=== PATIENT | female | born 1940 | race Caucasian/White ===

== ENCOUNTER 2020-06-01 19:09 | Emergency (ER) | payer MEDICARE, OTHER ==
[~2020-06-01] VITALS: Ht 154.9 cm; Wt 74.8 kg
[2020-06-01 20:14] LABS: BASOPHILS ABSOLUTE AUTO 0.02 K/mm3 (0.00-0.23); BASOPHILS PERCENT AUTO 0 % (0-2); EOSINOPHILS ABSOLUTE AUTO 0.14 K/mm3 (0.00-0.68); EOSINOPHILS PERCENT AUTO 2 % (0-6); Hematocrit 40.1 % (33.0-51.0); Hemoglobin 13.8 g/dL (11.5-16.0); IMMATURE GRAN ABSOLUTE AUTO 0.03 K/mm3 (0.00-0.10); IMMATURE GRAN PERCENT AUTO 1 % (0-1); LYMPHOCYTES ABSOLUTE AUTO 1.51 K/mm3 (0.84-5.20); LYMPHOCYTES PERCENT AUTO 24 % (21-46); MONOCYTES ABSOLUTE AUTO 0.61 K/mm3 (0.16-1.47); MONOCYTES PERCENT AUTO 10 % (4-13); Mean Corpuscular HGB 29.4 pg (26.0-34.0); Mean Corpuscular HGB Conc 34.4 g/dL (31.5-36.5); Mean Corpuscular Volume 85 fL (80-100); NEUTROPHILS ABSOLUTE AUTO 3.97 K/mm3 (1.96-9.15); NEUTROPHILS PERCENT AUTO 63 % (41-73); Platelet Count 230 K/mm3 (150-400); RDW Coefficient Variation 13.2 % (11.7-14.2); RDW Standard Deviation 40.9 fL (35.1-46.3); White Blood Cell Count 6.28 K/mm3 (4.00-11.30)
[2020-06-01 20:39] LABS: Alanine Aminotransfer (ALT/SGP 18 U/L (12-78); Albumin, Blood 4.1 g/dL (3.4-5.0); Alk Phos 94 U/L (50-136); Anion Gap 8 mmol/L (6-16); Aspartate Aminotrans (AST/SGOT 20 U/L (12-37); Bilirubin, Total 0.5 mg/dL (0.1-1.0); Blood Urea Nitrogen 27 mg/dL (8-24); Bun/Creatinine Ratio 22.7 (12.0-20.0); CO2, Blood 31 mmol/L (21-32); Calcium, Blood 9.9 mg/dL (8.5-10.1); Chloride, Blood 99 mmol/L (98-108); Creatinine, Blood 1.19 mg/dL (0.40-1.00); Globulin, Blood 4.1 g/dL (2.2-4.0); Glomerular Filtration Rate 46 (60-); Glucose, Blood 94 mg/dL (70-99); Potassium, Blood 3.1 mmol/L (3.5-5.5); Sodium, Blood 138 mmol/L (136-145); Total Protein, Blood 8.2 g/dL (6.4-8.2); Troponin I <0.015 ng/mL (0.000-0.040)
[2020-06-01] MEDS ORDERED: TOPROL XL25 MG PO (20:54)
[2020-06-01] MEDS ORDERED: Hygroton50 MG (20:54)
[2020-06-01] MEDS ORDERED: ASPI325 PO (20:55)
[2020-06-01] MEDS ORDERED: LOSA50 PO (20:55)
== END 2020-06-01 23:47 | disposition home or self-care (01) ==
LOC: ER 19:09
PROVIDERS: Emergency Medicine
DX: R07.9 Chest pain, unspecified (principal); I10 Essential (primary) hypertension; E78.5 Hyperlipidemia, unspecified; Z88.0 Allergy status to penicillin; Z88.2 Allergy status to sulfonamides; Z79.899 Other long term (current) drug therapy; Z79.82 Long term (current) use of aspirin
CPT/HCPCS: 36415; 71046; 80053; 83880; 84484; 85025; 93005; 93010; 99285-25

== ENCOUNTER 2021-09-12 12:39 | Inpatient (IN) | payer MEDICARE, OTHER ==
[~2021-09-12] VITALS: Ht 152.4 cm; Wt 76.5 kg
[~2021-09-12 12:39] MED LIST: ASPI325 PO; Hygroton50 MG; LOSA50 PO; TOPROL XL25 MG PO
[2021-09-12 14:31] LABS: Alanine Aminotransfer (ALT/SGP 27 U/L (12-78); Albumin, Blood 3.1 g/dL (3.4-5.0); Albumin/Globulin Ratio 0.8 (0.8-1.8); Alk Phos 75 U/L (50-136); Anion Gap 12 mmol/L (6-16); Aspartate Aminotrans (AST/SGOT 31 U/L (12-37); Bilirubin, Total 0.9 mg/dL (0.1-1.0); Blood Urea Nitrogen 16 mg/dL (8-24); Bun/Creatinine Ratio 19.8 (12.0-20.0); CO2, Blood 30 mmol/L (21-32); Calcium, Blood 8.3 mg/dL (8.5-10.1); Chloride, Blood 71 mmol/L (98-108); Creatinine, Blood 0.81 mg/dL (0.40-1.00); Globulin, Blood 3.9 g/dL (2.2-4.0); Glomerular Filtration Rate >60 (60-); Glucose, Blood 151 mg/dL (70-99); Potassium, Blood 2.5 mmol/L (3.5-5.5); Sodium, Blood 113 mmol/L (136-145)
[2021-09-12 14:34] LABS: BASOPHILS ABSOLUTE AUTO 0.01 K/mm3 (0.00-0.23); BASOPHILS PERCENT AUTO 0 % (0-2); EOSINOPHILS PERCENT AUTO 0 % (0-6); Hematocrit 32.2 % (33.0-51.0); IMMATURE GRAN ABSOLUTE AUTO 0.08 K/mm3 (0.00-0.10); IMMATURE GRAN PERCENT AUTO 1 % (0-1); LYMPHOCYTES ABSOLUTE AUTO 0.47 K/mm3 (0.84-5.20); LYMPHOCYTES PERCENT AUTO 6 % (21-46); MONOCYTES ABSOLUTE AUTO 0.67 K/mm3 (0.16-1.47); MONOCYTES PERCENT AUTO 8 % (4-13); Mean Corpuscular HGB 28.6 pg (26.0-34.0); Mean Corpuscular HGB Conc 37.3 g/dL (31.5-36.5); Mean Corpuscular Volume 77 fL (80-100); NEUTROPHILS ABSOLUTE AUTO 6.73 K/mm3 (1.96-9.15); NEUTROPHILS PERCENT AUTO 85 % (41-73); Platelet Count 208 K/mm3 (150-400); RDW Coefficient Variation 12.3 % (11.7-14.2); Red Blood Cell Count 4.19 M/mm3 (3.80-5.20); White Blood Cell Count 7.96 K/mm3 (4.00-11.30)
[2021-09-12] MEDS ORDERED: TELM20 (15:36)
[2021-09-12 16:39] LABS: Anion Gap 10 mmol/L (6-16); Blood Urea Nitrogen 15 mg/dL (8-24); Bun/Creatinine Ratio 18.1 (12.0-20.0); CO2, Blood 31 mmol/L (21-32); Calcium, Blood 8.1 mg/dL (8.5-10.1); Chloride, Blood 72 mmol/L (98-108); Creatinine, Blood 0.83 mg/dL (0.40-1.00); Glomerular Filtration Rate >60 (60-); Glucose, Blood 154 mg/dL (70-99); Potassium, Blood 2.5 mmol/L (3.5-5.5); Sodium, Blood 113 mmol/L (136-145)
[2021-09-12 18:03] LABS: Source, Urine Voided
[2021-09-12 18:16] LABS: Bilirubin, Urine Neg (Neg); Blood, Urine 5+ (Neg); Glucose Qualitative, Urine Neg (Neg); Ketones, Urine Neg (Neg); Leukocyte Esterase, Urine 1+ (Neg); Nitrite, Urine Pos (Neg); Protein, Urine 3+ (Neg); Urobilinogen, Urine 2+ (Normal)
[2021-09-12 18:21] LABS: Appearance, Urine Cloudy (Clear); Color, Urine Pale Yellow (P-Yellow)
[2021-09-12 18:22] LABS: Bacteria Many /hpf; Red Blood Cells, Urine 25-50 /hpf (0-2); Squamous Epithelial Cells Few /hpf (Few)
--- NOTE | 2021-09-12 18:49 | NUR ---
ARRIVAL TO PCU/SHIFT SUMMARY PATIENT ARRIVED FROM ED VIA GURNEY AND TRANSFERED TO PCU BED VIA SLIDER SHEET. PATIENT IS ALERT AND ORIENTATED X4. PERRLA. NEURO INTACT. VSS. SPO2 >90% ON RA. PATIENT REPORTS NO SHORTNESS OF BREATH. PATIENT LUNG SOUNDS SOUND WHEEZEY THROUGHOUT. PATIENT IS TELE SR AT 73. STRONG RADIAL AND PEDIS PULSES. PATIENT REPORTS NO CHEST PAIN. ABD IS SOFT NONTENDER. PATIENT IS IN NO DISTRESS. PATIENT REPORTS NO CHEST PAIN. THE FIRST PART OF PATIENT ASSESSMENT IS COMPLETE, BUT THE HISTORY AND ADMIN ASSESSMENT STILL NEEDS TO BE COMPLETE AND WILL INFORM THE UPCOMING RN. PATIENT ORIENTATED TO ROOM AND CALL LIGHT. CALL LIGHT WITHIN REACH AND BED IN LOWEST POSITON. WILL CNTINUE TO MONITOR AND PROVIDE CARE UNTIL HAND OFF WITH NEXT SHIFT.
[2021-09-12 19:05] LABS: Influenza B, PCR NEGATIVE (NEGATIVE); Resp Syncytial Virus, PCR NEGATIVE (NEGATIVE); SARS-Cov-2 (COVID-19) PCR, MMC NEGATIVE (NEGATIVE)
[2021-09-12 19:08] LABS: Influenza A, PCR POSITIVE (NEGATIVE)
[2021-09-12 21:14] LABS: Anion Gap 9 mmol/L (6-16); Blood Urea Nitrogen 14 mg/dL (8-24); Bun/Creatinine Ratio 18.1 (12.0-20.0); CO2, Blood 30 mmol/L (21-32); Calcium, Blood 7.9 mg/dL (8.5-10.1); Chloride, Blood 76 mmol/L (98-108); Creatinine, Blood 0.77 mg/dL (0.40-1.00); Glomerular Filtration Rate >60 (60-); Glucose, Blood 161 mg/dL (70-99); Sodium, Blood 115 mmol/L (136-145)
[2021-09-13 00:24] LABS: Anion Gap 9 mmol/L (6-16); Blood Urea Nitrogen 15 mg/dL (8-24); Bun/Creatinine Ratio 17.8 (12.0-20.0); CO2, Blood 30 mmol/L (21-32); Calcium, Blood 7.8 mg/dL (8.5-10.1); Chloride, Blood 77 mmol/L (98-108); Creatinine, Blood 0.84 mg/dL (0.40-1.00); Glomerular Filtration Rate >60 (60-); Glucose, Blood 144 mg/dL (70-99); Potassium, Blood 3.2 mmol/L (3.5-5.5); Sodium, Blood 116 mmol/L (136-145)
[2021-09-13 03:55] LABS: BASOPHILS PERCENT AUTO 0 % (0-2); EOSINOPHILS PERCENT AUTO 0 % (0-6); Hemoglobin 10.2 g/dL (11.5-16.0); IMMATURE GRAN ABSOLUTE AUTO 0.03 K/mm3 (0.00-0.10); IMMATURE GRAN PERCENT AUTO 0 % (0-1); LYMPHOCYTES ABSOLUTE AUTO 0.51 K/mm3 (0.84-5.20); LYMPHOCYTES PERCENT AUTO 7 % (21-46); MONOCYTES PERCENT AUTO 10 % (4-13); Mean Corpuscular HGB 28.7 pg (26.0-34.0); Mean Corpuscular HGB Conc 36.4 g/dL (31.5-36.5); Mean Corpuscular Volume 79 fL (80-100); NEUTROPHILS ABSOLUTE AUTO 5.65 K/mm3 (1.96-9.15); NEUTROPHILS PERCENT AUTO 82 % (41-73); Platelet Count 185 K/mm3 (150-400); RDW Coefficient Variation 12.4 % (11.7-14.2); RDW Standard Deviation 35.7 fL (35.1-46.3); Red Blood Cell Count 3.55 M/mm3 (3.80-5.20); White Blood Cell Count 6.89 K/mm3 (4.00-11.30)
[2021-09-13 04:17] LABS: Anion Gap 9 mmol/L (6-16); Blood Urea Nitrogen 15 mg/dL (8-24); Bun/Creatinine Ratio 17.2 (12.0-20.0); CO2, Blood 29 mmol/L (21-32); Calcium, Blood 7.7 mg/dL (8.5-10.1); Chloride, Blood 79 mmol/L (98-108); Creatinine, Blood 0.87 mg/dL (0.40-1.00); Glomerular Filtration Rate >60 (60-); Glucose, Blood 122 mg/dL (70-99); Potassium, Blood 2.9 mmol/L (3.5-5.5); Sodium, Blood 117 mmol/L (136-145)
--- NOTE | 2021-09-13 05:56 | NUR ---
SHIFT SUMMARY PATIENT FOUND TO BE A&OX4 WITH A FLAT AFFECT AND GENERALIZED WEAKNESS. VSS. ON RA. FREQUENT PRODUCTIVE COUGH WITH THICK GREEN SPUTUM CONTINUES. COUGH MEDS ADDED TO MED LIST AND GIVEN. SR ON THE MONITOR WITH FREQUENT PVC'S AND PAC'S. RN NOTICED EARLY THIS AM UPON GETTING UP TO COMMODE THAT PATIENT HAD INT. SHORT RUNS OF AFIB. ASYMPTOMATIC THROUGHOUT. WILL KEEP AN EYE ON THIS NO NOTABLE HISTORY OF AFIB. NAUSEA MEDS GIVEN PRN X2 WITH GOOD RELIEF. DID NOT WANT TO ATTEMPT ANY OTHER ORAL INTAKE BESIDES WATER. TOLERATING THIS AND WILL ENCOURAGE MORE ORAL INTAKE TOLERATED. ONE EPISODE OF DIARHEA AT START OF SHIFT BUT NONE SINCE THEN. IMMODIUM ADDED TO PRN MED LIST AND GIVEN. VOIDING WELL PER BSC WITH SBA. CALLING APPROPRIATELY FOR ASSISTANCE AND FALL PRECAUTIONS IN PLACE. IV FLUIDS AND POTASSIUM RUN PER ORDER. K STILL LOW WITH MORNING LABS AT 2.9. MADE AWARE AND ORDERED ADDITIONAL 40MEQ IV K TO BE GIVEN. SODIUM STILL CRITICAL BUT TRENDING UP AND WILL CONTINUE NS ORDERED. NO ACUTE CONCERNS AT THIS TIME. WILL CONTINUE PLAN OF CARE UNTIL REPORT GIVEN TO MARTHA CINTRON.
[2021-09-13 18:28] LABS: Alanine Aminotransfer (ALT/SGP 30 U/L (12-78); Albumin, Blood 2.7 g/dL (3.4-5.0); Albumin/Globulin Ratio 0.8 (0.8-1.8); Alk Phos 66 U/L (50-136); Anion Gap 5 mmol/L (6-16); Aspartate Aminotrans (AST/SGOT 44 U/L (12-37); Bilirubin, Total 0.8 mg/dL (0.1-1.0); Blood Urea Nitrogen 13 mg/dL (8-24); Bun/Creatinine Ratio 14.7 (12.0-20.0); CO2, Blood 28 mmol/L (21-32); Calcium, Blood 7.8 mg/dL (8.5-10.1); Chloride, Blood 83 mmol/L (98-108); Creatinine, Blood 0.88 mg/dL (0.40-1.00); Globulin, Blood 3.5 g/dL (2.2-4.0); Glomerular Filtration Rate >60 (60-); Glucose, Blood 150 mg/dL (70-99); Potassium, Blood 4.2 mmol/L (3.5-5.5); Sodium, Blood 116 mmol/L (136-145); Total Protein, Blood 6.2 g/dL (6.4-8.2)
--- NOTE | 2021-09-13 18:51 | NUR ---
SHIFT NOTE PT HAS RECIEVED 100MEQ OF POTASSIUM TODAY WITH REPEAT BLOOD DRAW REVEALING K+ 4.2, Na 116, NEW ORDER WAS OBTAINED TO INCREASE NS TO 150ML/HR WHICH HAS BEEN CHANGED AT THE TIME OF THIS NOTE. PT HAS BEEN RESTING WELL IN BED TODAY WITH OCCASIONAL COUGHING, ORDER WAS OBTAINED FOR CEPCOL LOZENGE WHICH HAS HELPED TO CONTRL COUHG. VSS. PT SBA TO BSC. A/O X3, SHE IS VERY HARD OF HEARING SHE REQUIRES BEING SPOKEN TO LOUD AND SLOW.
[2021-09-14 05:28] LABS: Anion Gap 6 mmol/L (6-16); Blood Urea Nitrogen 13 mg/dL (8-24); Bun/Creatinine Ratio 17.4 (12.0-20.0); CO2, Blood 29 mmol/L (21-32); Calcium, Blood 7.7 mg/dL (8.5-10.1); Chloride, Blood 87 mmol/L (98-108); Creatinine, Blood 0.75 mg/dL (0.40-1.00); Glomerular Filtration Rate >60 (60-); Glucose, Blood 102 mg/dL (70-99); Magnesium, Blood 1.7 mg/dL (1.6-2.4); Potassium, Blood 3.3 mmol/L (3.5-5.5); Sodium, Blood 122 mmol/L (136-145)
--- NOTE | 2021-09-14 05:38 | NUR ---
SHIFT SUMMARY PATIENT FOUND TO BE A PLESANT LADY WHO IS A&OX4 WITH GENERALIZED WEAKNESS. ON 2L NC SATING MID 90'S. PRODUCTIVE COUGH CONTINUES AND IS VERY BOTHERSOME TO PATIENT. INT EX WHEEZES HEARD AFTER COUGHING SPELLS AND PRN BREATHING TREAMENT GIVEN X1 WITH DECENT RELIEF. COMPLAINTS OF THROAT PAIN AND PRN CEPACOL AND MUCINEX GIVEN. VSS. NSR IN THE 60'S-80'S WITH FRQUENT PVC'S. TOLERATING DIET WITH NO N/V/D THROUGHOUT THIS SHIFT. APPETITE IMPROVING. VOIDING WELL PER BSC WITH ONE ASSIST. IV FLUIDS RUNNING PER ORDER. NO ACUTE CONCERNS AT THIS TIME. WILL CONTINUE PLAN OF CARE UNTIL REPORT GIVEN TO MARTHA CINTRON.
--- NOTE | 2021-09-14 18:15 | NUR ---
SHIFT SUMMARY PT IS ALERT AND ORIENTED X 4, SHE IS PLEASANT AND COOPERATIVE WITH CARE BUT IS HARD OF HEARING AND SLOW TO RESPOND. VITAL SIGNS HAVE REMAINED STABLE AND PT HAS REMAINED AFEBRILE T/O SHIFT. SHE HAS DENIED FEELINGS OF NAUSEA/VOMITTING AND HAS NOT HAD DIARRHEA DURING SHIFT. NS IS INFUSING AT 150ML/HR PER EMAR ORDERS. PT REPORTS SORE THROAT, SEE EMAR FOR PAIN RELIEF MEASURES. PT IS INDEPENDENT TO BEDSIDE COMMODE AND IS STEADY ON HER FEET. NO ACUTE CHANGES NOTED. CALL LIGHT IN REACH, WILL CONTINUE TO MONITOR UNTIL REPORT GIVEN.
[2021-09-15 04:23] LABS: Anion Gap 6 mmol/L (6-16); Blood Urea Nitrogen 9 mg/dL (8-24); Bun/Creatinine Ratio 12.9 (12.0-20.0); CO2, Blood 30 mmol/L (21-32); Calcium, Blood 7.9 mg/dL (8.5-10.1); Chloride, Blood 92 mmol/L (98-108); Glomerular Filtration Rate >60 (60-); Glucose, Blood 112 mg/dL (70-99); Potassium, Blood 3.2 mmol/L (3.5-5.5); Sodium, Blood 128 mmol/L (136-145)
--- NOTE | 2021-09-15 05:21 | NUR ---
DROPLET PRECAUTIONS FOR INFLUENZA A. PT CONTINUES ON ROOM AIR WITH SPO2 95-98%. LUNGS ARE COARSE. PERSISTENT, FREQUENT PRODUCTIVE COUGH OF MAE/GREEN SPUTUM. C/O SORE THROAT WHICH IS RELIEVED WITH TYLENOL. PERSISTENT HYPERTENSION. ADMINISTERED ONE DOSE OF PRN HYDRALAZINE FOR BP OF 180/71. IMPROVED TO 148/72. CONTINUES ON 0.9% NACl INFUSION AT 150 ML/HOUR. SERUM SODIUM INCREASED FROM 122 TO 128, POTASSIUM REMAINS LOW AT 3.2. POSITIVE FOR E-COLI IN URINE. PT UP TO BEDSIDE COMMODE INDEPENDENTLY.
[2021-09-15] MEDS ORDERED: VITAMIN D5000 UNIT PO (12:16)
[2021-09-15] MEDS ORDERED: BENZ100A PO (12:16)
[2021-09-15] MEDS ORDERED: GUAI600T33 PO (12:16)
--- NOTE | 2021-09-15 13:32 | NUR ---
DISCHARGE: PT CLEARED FOR DISCHARGE. PT HAS BEEN PROVIDED WITH DC PAPERWORK AND INSTRUCTIONS, ALL QUESTIONS ANSWERED. IV ACCESS DC'd WNL. PT ESCORTED FROM UNIT VIA W/C IN NAD.
== END 2021-09-15 13:25 | disposition home or self-care (01) | DRG 641 ==
LOC: ER 12:39 → PCU 12:40
PROVIDERS: Internal Medicine; Student in an Organized Health Care Education/Training Program; ADMIT Internal Medicine
DX: E87.1 Hypo-osmolality and hyponatremia (principal); Z20.822 Contact with and (suspected) exposure to COVID-19; I10 Essential (primary) hypertension; E78.5 Hyperlipidemia, unspecified; E87.6 Hypokalemia; E83.42 Hypomagnesemia; E66.9 Obesity, unspecified; E86.0 Dehydration; I27.21 Secondary pulmonary arterial hypertension; R11.2 Nausea with vomiting, unspecified; R19.7 Diarrhea, unspecified; J10.1 Influenza due to other identified influenza virus with other respiratory manifestations; Z68.31 Body mass index [BMI] 31.0-31.9, adult; Z88.0 Allergy status to penicillin; Z88.2 Allergy status to sulfonamides; Z79.82 Long term (current) use of aspirin; Z79.899 Other long term (current) drug therapy
CPT/HCPCS: 0241U; 36415; 71046; 80048; 80053; 81001; 82330; 83735; 84484; 85025; 87077; 87086; 87186; 93005; 93010; 94640; 96365; 96366; 96368; 96372; 96375; 96376; 99285-25; A9270; C1751; G0378; J0360; J0610; J0780; J1650; J2405; J3475; J3480; J7030

== ENCOUNTER 2024-04-11 08:39 | Inpatient (IN) | payer MEDICARE, OTHER ==
[~2024-04-11] VITALS: Ht 154.9 cm; Wt 83.8 kg
[~2024-04-11 08:39] MED LIST changes: +BENZ100A PO; +GUAI600T33 PO; +METO50ER PO; +TELM20; -TOPROL XL25 MG PO; +VITAMIN D5000 UNIT PO
[2024-04-11] MEDS ORDERED: Furosemide 10 MG / ML 2ML Vial IV ONE (09:25)
[2024-04-11] MEDS ORDERED: Diltiazem HCl 5 MG / ML 5ML Vial IV ONE (09:25)
[2024-04-11 09:42] LABS: Albumin, Blood 3.2 g/dL (3.4-5.0); Albumin/Globulin Ratio 1.1 (0.8-1.8); Bilirubin, Total 1.4 mg/dL (0.1-1.0); Bun/Creatinine Ratio 24.3 (12.0-20.0); Creatinine, Blood 1.07 mg/dL (0.40-1.00); Globulin, Blood 2.8 g/dL (2.2-4.0)
[2024-04-11 09:49] LABS: BASOPHILS ABSOLUTE AUTO 0.01 K/mm3 (0.00-0.23); BASOPHILS PERCENT AUTO 0 % (0-2); EOSINOPHILS ABSOLUTE AUTO 0.06 K/mm3 (0.00-0.68); EOSINOPHILS PERCENT AUTO 1 % (0-6); Hematocrit 39.5 % (33.0-51.0); Hemoglobin 13.4 g/dL (11.5-16.0); IMMATURE GRAN ABSOLUTE AUTO 0.07 K/mm3 (0.00-0.10); IMMATURE GRAN PERCENT AUTO 1 % (0-1); LYMPHOCYTES ABSOLUTE AUTO 0.48 K/mm3 (0.84-5.20); LYMPHOCYTES PERCENT AUTO 6 % (21-46); MONOCYTES ABSOLUTE AUTO 0.71 K/mm3 (0.16-1.47); MONOCYTES PERCENT AUTO 8 % (4-13); Mean Corpuscular HGB 27.5 pg (26.0-34.0); Mean Corpuscular HGB Conc 33.9 g/dL (31.5-36.5); Mean Corpuscular Volume 81 fL (80-100); Mean Platelet Volume 11.2 fL (9.1-12.4); NEUTROPHILS ABSOLUTE AUTO 7.13 K/mm3 (1.96-9.15); NEUTROPHILS PERCENT AUTO 84 % (41-73); Platelet Count 256 K/mm3 (150-400); RDW Standard Deviation 47.2 fL (35.1-46.3); Red Blood Cell Count 4.88 M/mm3 (3.80-5.20); White Blood Cell Count 8.46 K/mm3 (4.00-11.30)
[2024-04-11 11:48] LABS: Influenza A, PCR NEGATIVE (NEGATIVE); Influenza B, PCR NEGATIVE (NEGATIVE); Resp Syncytial Virus, PCR NEGATIVE (NEGATIVE); SARS-Cov-2 (COVID-19) PCR, MMC NEGATIVE (NEGATIVE)
[2024-04-11] MEDS ORDERED: Ondansetron HCl 2 MG / ML 2ML Vial IV PRN (13:05)
[2024-04-11] MEDS ORDERED: Magnesium Hydroxide Conc 10 ML UDC PO PRN (13:05)
[2024-04-11] MEDS ORDERED: FLU VACC TS2024-25(6MOS UP)/PF 45 MCG/0.5 ML SYRINGE IM SCH (13:05)
[2024-04-11] MEDS ORDERED: Metoprolol Tartrate 25 MG Tab PO SCH (14:00)
[2024-04-11] MEDS ORDERED: Furosemide 10 MG/ML 4ML Vial IV SCH (14:00)
[2024-04-11 14:44] VITALS: BP 132/78
[2024-04-11] MEDS ORDERED: SPIRIVA RESPIMAT4 G2 INH (14:48)
[2024-04-11] MEDS ORDERED: ALBU90OI INH (14:49)
[2024-04-11] MEDS ORDERED: Isosorbide Mono30 MG PO (14:50)
[2024-04-11] MEDS ORDERED: POTA10T PO (14:51)
[2024-04-11] MEDS ORDERED: TELM80 PO (14:51)
[2024-04-11] MEDS ORDERED: FURO20 PO (14:52)
[2024-04-11] MEDS ORDERED: ASPI81CH PO (14:53)
[2024-04-11] MEDS ORDERED: NITROGLYCERIN0.4 M2 SL (14:56)
[2024-04-11] MEDS ORDERED: Potassium Chloride 20 MEQ TabCR PO STA (15:16)
[2024-04-11] MEDS ORDERED: Nitroglycerin 0.4 MG SUBL SL PRN (15:55)
[2024-04-11] MEDS ORDERED: Albuterol HFA200 ACT/6.7 GM INH INH PRN (16:05)
[2024-04-11] MEDS ORDERED: Tiotropium Bromide 2.5 MCG/ACT MIST INHAL (10 ACT/4 GM) INH SCH (16:10)
[2024-04-11] MEDS ORDERED: Potassium Chloride 10 Meq Tablet SA PO SCH (17:00)
[2024-04-11 19:35] VITALS: BP 103/75
[2024-04-12] VITALS (7 sets, daily range): BP systolic 109–124; BP diastolic 78–98
--- NOTE | 2024-04-12 05:20 | NUR ---
ENGINEER CHIEF NOTE PATIENT IS A&OX4, VITALS ARE STABLE, ON ROOM AIR, ON TELE RUNNING A-TUTU AT 73. PATIENT DENIED ANY PAIN. PATIENT HAS AN EXTERNAL CATHETER THAT IS WORKING WELL. PATIENT HAS 3 PLUS EDEMA TO BILATERAL LOWER EXTREMITIES PATIENT IS VERY HARD OF HEARING.
[2024-04-12 06:21] LABS: Bun/Creatinine Ratio 25.2 (12.0-20.0); Calcium, Blood 8.6 mg/dL (8.5-10.1); Creatinine, Blood 0.99 mg/dL (0.40-1.00); Potassium, Blood 2.4 mmol/L (3.5-5.5)
[2024-04-12] MEDS ORDERED: Potassium Chl 20MEQ/Water100ML 100 ML IV SCH (06:45)
[2024-04-12] MEDS ORDERED: NS 1,000 ML IV SCH (07:20)
[2024-04-12] MEDS ORDERED: NS 250 ML IV PRN (07:20)
[2024-04-12] MEDS ORDERED: Cholecalciferol 1000 Unit Tablet (=25MCG) PO SCH (09:00)
[2024-04-12] MEDS ORDERED: Enoxaparin 40 MG/0.4 ML SYR SC SCH (09:00)
[2024-04-12] MEDS ORDERED: Aspirin 81 MG Chew PO SCH (09:00)
[2024-04-12] MEDS ORDERED: Empagliflozin 10 MG TAB PO SCH (09:00)
[2024-04-12] MEDS ORDERED: Metoprolol Succinate 50 MG TABCR PO SCH ×2 (09:00)
[2024-04-12] MEDS ORDERED: Losartan Potassium 50 MG Tab PO SCH (09:00)
[2024-04-12] MEDS ORDERED: Apixaban 5 MG Tab PO SCH (09:00)
[2024-04-12] MEDS ORDERED: Isosorbide Mononitrate 30 MG TABCR PO SCH (09:00)
[2024-04-12] MEDS ORDERED: Magnesium Sulf 2 GM/Water 50ML 50 ML IV ONE (11:05)
[2024-04-12] MEDS ORDERED: Potassium Chloride 20 MEQ TabCR PO ONE (13:55)
--- NOTE | 2024-04-12 16:55 | NUR ---
SHIFT SUMMARY- PT ALERT AND ORIENTED, 1PA TO THE BSC OR THE RECLINER. PT IS ABLE TO MAKE HER NEEDS KNOWN. SHE GOT UP INTO THE RECLINER AND WAS ABLE TO LET STAFF KNOW WHEN SHE NEEDED TO USE THE RESTROOM. WITH THE IV LASIX SHE FEARED SHE WOULD HAVE SOME STRESS INCONTINENCE, HOWEVER SHE HAD NO INCONTINENCE T/O THE SHIFT. PT IN THE BED, CALL LIGHT IN REACH NO S&S OF DISTRESS NOTED.
[2024-04-13 03:26] VITALS: BP 114/89
--- NOTE | 2024-04-13 06:47 | NUR ---
NO ACUTE CHANGES DURING SHIFT. VSS. TELE AFIB @ 84 BPM, AT 0300 BIGEMINY <6 SECONDS, PT STABLE ASYMPTOMATIC.
[2024-04-13 07:06] VITALS: BP 129/87
[2024-04-13 07:06] LABS: Magnesium, Blood 1.9 mg/dL (1.6-2.4)
[2024-04-13 07:07] LABS: Bun/Creatinine Ratio 23.5 (12.0-20.0); Calcium, Blood 8.7 mg/dL (8.5-10.1); Creatinine, Blood 1.19 mg/dL (0.40-1.00); Potassium, Blood 2.5 mmol/L (3.5-5.5)
[2024-04-13] MEDS ORDERED: Potassium Chl 20MEQ/Water100ML 100 ML IV SCH (07:35)
[2024-04-13] MEDS ORDERED: Sacubitril/Valsartan 24 MG-26 MG Tab PO SCH (09:00)
[2024-04-13] MEDS ORDERED: Torsemide 20 MG TAB PO SCH (09:00)
[2024-04-13 15:08] VITALS: BP 101/66
[2024-04-13] MEDS ORDERED: Potassium Chloride 20 MEQ TabCR PO ONE (16:00)
--- NOTE | 2024-04-13 18:41 | NUR ---
SHIFT SUMMARY- PT HAS HAD POTASSIUM TODAY, IV LASIX WAS DC'D. PT RECIEVED A OT PO DOSE OF 20MEQ POTASSIUM AROUNT 1600 WITH A POTASSIUM LEVEL RECHECK AT [address] LY. PT HAS RECIEVED A TOTAL OF 120 MEQ OF POTASSIUM TODAY. PT IS IN BED, CALL LIGHT IN REACH, NO S&S OF DISTRESS NOTED. DR LY ORDERED COMPRESSION STOCKINGS FOR THE PT, SHE WEARS A SIZE MEDIUM. PT IS ALERT AND ORIENTED AND CALLS APPROPRIATELY.
[2024-04-13 19:25] VITALS: BP 101/81
[2024-04-14 03:20] VITALS: BP 103/67
--- NOTE | 2024-04-14 06:49 | NUR ---
NO ACUTE CHANGES DURING SHIFT. VSS. POTSSIUM IMPROVED TO 3.6 - SEE LAB RESULTS.
[2024-04-14 07:21] VITALS: BP 116/84
[2024-04-14 08:18] LABS: Bun/Creatinine Ratio 24.8 (12.0-20.0); Creatinine, Blood 1.25 mg/dL (0.40-1.00); Magnesium, Blood 1.7 mg/dL (1.6-2.4)
[2024-04-14] MEDS ORDERED: Potassium Chloride 20 MEQ TabCR PO ONE (08:55)
[2024-04-14] MEDS ORDERED: Mag Sulfate 1 GM/D5% 100ML 100 ML IV STA (08:58)
[2024-04-14 11:41] VITALS: BP 104/82
[2024-04-14] MEDS ORDERED: Spironolactone 25 MG Tab PO SCH (12:00)
[2024-04-14 12:31] VITALS: BP 114/80
[2024-04-14 15:00] VITALS: BP 100/62
--- NOTE | 2024-04-14 16:57 | NUR ---
SHIFT SUMMARY: PATIENT A/OX4, [place], PLEASANT AND COOPERATIVE c CARE. PATIENT DENIES CP/PRESSURE, SOB, N/V AND DIZZINESS. PATIENT ON TELE, A-FIB HR IN THE LOW 100'S BPM c OCCASIONAL PVC. PLUS 2-3 PITTING EDEMA TO BLE'S/FEET. PATIENT STARTED ON PO ALDACTONE TODAY. PATIENT RECEIVED OT DOSE OF IV MAG SULFATE AND A TOTAL OF 70 MEQ OF PO K CHLORIDE PER EMAR. PATIENT SAT UP IN THE RECLINER CHAIR FOR ABOUT 6 HRS THIS SHIFT, TOLERATING WELL. PATIENT HAS GOOD APPETITE, CONTINENT OF BOWEL/BLADDER, AMBULATES TO BATHROOM c FWW/SBA. VITAL SIGNS REVIEWED. BED ALARM ON FOR SAFETY. CALL LIGHT IN REACH.
[2024-04-14] MEDS ORDERED: Potassium Chloride 10 Meq Tablet SA PO SCH (17:00)
[2024-04-14 19:38] VITALS: BP 107/85
--- NOTE | 2024-04-15 04:39 | NUR ---
PATIENT SUMMARY: PT IS A 83 YEAR OLD WOMAN AND IS A DNR. PT IS PLEASANT AND A&OX4 BUT IS COUSHATTA. PT IS ON TELE IN AFIB AND 'S. PT IS ON RA AND WEARS GLASSES, SHE IS A 1 ASSIST WITH FWW TO THE BATHROOM. PT CALLS APROPRIATLY WHEN SHE NEEDS SOMETHING OR TO USE THE RESTROOM. PT HAS BEEN RESTING MOST OF THE NIGHT AND HAS 3+ PITTING EDEMA TO LOWER EXTREMETIES (FEET HAVE BEEN PROPPED ON PILLOW).CALL LIGHT WITHIN REACH.
[2024-04-15 05:08] VITALS: BP 115/85
[2024-04-15 06:02] LABS: Bun/Creatinine Ratio 24.8 (12.0-20.0); Calcium, Blood 9.1 mg/dL (8.5-10.1); Creatinine, Blood 1.25 mg/dL (0.40-1.00); Magnesium, Blood 1.9 mg/dL (1.6-2.4)
[2024-04-15 07:17] VITALS: BP 113/72
[2024-04-15] MEDS ORDERED: Potassium Chloride 20 MEQ TabCR PO ONE (07:35)
[2024-04-15] MEDS ORDERED: Spironolactone 25 MG Tab PO SCH (09:00)
[2024-04-15] MEDS ORDERED: Spironolactone 50 MG Tab PO SCH (09:00)
[2024-04-15] MEDS ORDERED: Torsemide 10 MG TAB PO SCH (09:00)
[2024-04-15 15:29] LABS: Bun/Creatinine Ratio 25.4 (12.0-20.0); Calcium, Blood 9.1 mg/dL (8.5-10.1); Creatinine, Blood 1.26 mg/dL (0.40-1.00); Potassium, Blood 3.8 mmol/L (3.5-5.5)
[2024-04-15 15:30] VITALS: BP 103/78
--- NOTE | 2024-04-15 17:14 | NUR ---
SHIFT SUMMARY: PATIENT A/OX4, BARROW, PLEASANT AND COOPERATIVE c CARE. PATIENT REPORTS, "OVERALL FEELING A LOT BETTER TODAY." PATIENT DENIES GENERALIZED PAIN, CP/PRESSURE, SOB, N/V AND DIZZINESS. PATIENT STILL ON TELE, A-FIB HR RANGES IN THE 80'S TO LOW 100'S BPM. EDEMA TO BLE'S HAS IMPROVED. PATIENT RECEIVED A TOTAL OF 80 MEQ PO K CHLORIDE THIS SHIFT. PATIENT REPEAT K LAB DRAWN AT 1500 WAS 3.8. PATIENT HAS GOOD APPETITE, CONTINENT OF BLADDER, AMBULATES TO BATHROOM c SBA/FWW. PATIENT SAT UP IN CHAIR FOR ABOUT 6 HRS THIS SHIFT. MIPELEX DRESSING IN PLACED TO COCCYX FOR PROTECTION. VITAL SIGNS REVIEWED. CALL LIGHT IN REACH.
[2024-04-15 19:48] VITALS: BP 100/78
[2024-04-16 02:38] VITALS: BP 108/94
--- NOTE | 2024-04-16 04:07 | NUR ---
PT IS AN 83 YO FEMALE DNR. PT IS A PLEASANT PERSON WHO IS A&OX4 AND USES CALL LIGHT APPROPRIATLEY TO USE THE RESTROOM AND IS A 1 ASSIST WITH FWW TO THE BATHROOM. PT IS ON TELE IN A-FIB WITH PVC'S IN THE 80-90'S. PT IS VENETIE, ON ROOM AIR AND WEARS GLASSES. PT HAS BEEN SLEEPING/RESTING MOST OF SHIFT. PT HAS CALL LIGHT IN REACH.
[2024-04-16 06:13] LABS: Bun/Creatinine Ratio 27.4 (12.0-20.0); Calcium, Blood 9.6 mg/dL (8.5-10.1); Creatinine, Blood 1.35 mg/dL (0.40-1.00); Potassium, Blood 4.1 mmol/L (3.5-5.5)
[2024-04-16 07:39] VITALS: BP 117/85
[2024-04-16] MEDS ORDERED: MELATONIN5 M1 PO (10:56)
[2024-04-16] MEDS ORDERED: ELIQUIS5 M2 PO (10:58)
[2024-04-16] MEDS ORDERED: JARDIANCE10 MG PO (11:00)
[2024-04-16] MEDS ORDERED: ENTRESTO 24 MG1 EACH PO (11:01)
[2024-04-16] MEDS ORDERED: POTA10T PO (11:02)
[2024-04-16] MEDS ORDERED: TORS10 PO (11:03)
--- NOTE | 2024-04-16 11:48 | NUR ---
SHIFT/DISCHARGE SUMMARY: NO NEW CHANGES THIS SHIFT. PATIENT A/OX4, BLACKFEET, PLEASANT AND COOPERATIVE c CARE. NO EVENTS ON TELE, A-AFIB HR RANGES IN THE 90'S TO 110'S BPM. PATIENT DENIES CP/PRESSURE, SOB, N/V AND DIZZINESS. EDEMA TO BLE'S HAS IMPROVED. PATIENT HAS GOOD APPETITE, CONTINENT OF BLADDER AND HAS BEEN AMBULATING TO BATHROOM c SBA/FWW T/O SHIFT. PATIENT RECEIVED SCHEDULED MEDS PER EMAR. VITAL SIGNS REVIEWED. PIV WAS DC'D BY RESTAURANT CREW. PATIENT DISCHARGE HOME c [facility]. DISCHARGE INSTRUCTIONS PACKET GIVEN TO PATIENT. EDUCATED PATIENT AND MARY JO (SON) REGARDING ADMITTING DX'S OF CHF EXACERBATION, S/S, TX, NEW PRESCRIBED RX, DAILY WEIGHTS, DIET, SELF CARE, F/U c PCP IN A WEEK AND REGIONAL TRAINER IN A MONTH. ALSO TO HAVE HER LAB DRAWN DONE FOR BMP AND KIDNEY FUNCTION ON Wednesday04/18/24. PATIENT AND MARY JO VERBALIZED UNDERSTANDING AND NO FURTHER QUESTIONS. RX WAS FAXED TO PATIENT PREFERRED PHARMACY. ALL PATIENT PERSONAL BELONGINGS WERE SENT HOME c THE PATIENT. PATIENT LEFT THE ROOM AT 1146, TRANSPORTED VIA WHEELCHAIR BY SAIDA CHEUNG TO PATIENT ENTRANCE.
== END 2024-04-16 11:47 | disposition home health service (06) | DRG 291 ==
LOC: ER 08:39 → MEDS 13:01 → ENPENDDIS 04-16 11:19 → MEDS 04-16 11:47
PROVIDERS: Student in an Organized Health Care Education/Training Program; ADMIT Internal Medicine
DX: I11.0 Hypertensive heart disease with heart failure (principal); I50.21 Acute systolic (congestive) heart failure; E87.1 Hypo-osmolality and hyponatremia; Z66 Do not resuscitate; E87.6 Hypokalemia; E78.5 Hyperlipidemia, unspecified; E83.42 Hypomagnesemia; I48.91 Unspecified atrial fibrillation; I42.8 Other cardiomyopathies; Z88.2 Allergy status to sulfonamides; Z88.0 Allergy status to penicillin; Z79.899 Other long term (current) drug therapy
CPT/HCPCS: 0241U; 36415; 71046; 80048; 80053; 82947; 83735; 83880; 84132; 84484; 85025; 93005; 93010; 94640; 94664; 94760; 96374; 96375; 97110; 97161; 97530; 99285-25; A9270; C8929; J1940; J3475; J3480; J7030; J7050; Q9957